=== PATIENT | male | born 1940 | race Caucasian/White ===

== ENCOUNTER → 2020-07-17 | Outpatient (CLI) | payer MEDICARE ==
[~2020-07-17] MED LIST: ALLO300 PO; AMLO10 PO; COLE1 PO; CYAN1000 PO; Ecotrin PO; FISH1000 PO; INSLI100I SC; LEVEMIR SC; LISINOPRIL PO; METF500 PO; POTCIT5 PO; REPA1 PO; SIMV10 PO; SIMV20 PO
== END | disposition home or self-care (01) ==
LOC: PLD 11:36 → LAB SHORT 11:36
DX: C44.629 Squamous cell carcinoma of skin of left upper limb, including shoulder (principal)
CPT/HCPCS: 88305

== ENCOUNTER → 2020-08-05 | Outpatient (CLI) | payer MEDICARE | END | disposition home or self-care (01) | LOC: LAB SHORT 11:32 → PLD 11:32 | DX: C44.629 Squamous cell carcinoma of skin of left upper limb, including shoulder (principal) | CPT/HCPCS: 88305 ==

== ENCOUNTER 2022-10-29 09:42 | Day surgery (SDC) | payer MEDICARE ==
[~2022-10-29] VITALS: Ht 188 cm; Wt 119.0 kg
[~2022-10-29 09:42] MED LIST changes: +FURO40 PO; +LISI20 PO; -SIMV10 PO; +Zocor10 MG PO
[2022-10-29] MEDS ORDERED: Aspir 8181 MG PO (10:22)
--- NOTE | 2022-10-29 13:20 | NUR ---
ASSUMED CARE OF PT. PT AWAKE AND CONVERSING APPROPRIATELY; DENIES PAIN POST PROCEDURE. MONITOR ST WITH IVCD 100'S, B/P 95/62, SPO2 94% 2L NC, AFEBRILE. R RADIAL SITE NO SWELLING/HEMATOMA, TR BAND IN PLACE; RUE POSITIVE PLEUTH POST TR BAND PLACEMENT. R AC (VENOUS) NO SWELLING/HEMATOMA, ASUNCION AND TEGADERM DRSG INTACT.
[2022-10-29] MEDS ORDERED: CLOP75 PO (13:57)
[2022-10-29] MEDS ORDERED: Crestor40 MG PO (13:57)
--- NOTE | 2022-10-29 16:15 | NUR ---
PT AMB TO BATHROOM, GAIT STEADY, SITES UNCHANGED WITH ACTIVITY. PT GOT DRESSED WITH ASSISTANCE, SITES UNCHANGED. TR BAND REMOVED, CLOTH DOT AND WRIST IMMOBILIZER PLACED; IV REMOVED-CANNULA INTACT. PT DECLINED SLING.
--- NOTE | 2022-10-29 16:21 | NUR ---
PT AND RECEIVED DISCHARGE INSTRUCTIONS, MED LIST AND AFTER CARE INSTRUCTIONS; VERBALIZED GOOD UNDERSTANIDNG. PT LEFT FACILITY VIA W/C, CONDITION STABLE.
== END 2022-10-29 16:21 | disposition home or self-care (01) ==
LOC: MHTC 09:42
DX: R06.02 Shortness of breath (principal)
CPT/HCPCS: 85347; 93460; 93571; 99152; 99153; C1769; C1887; C1894; J1644; J2250; J3010; J7030; J7050; Q9967

== ENCOUNTER 2023-07-28 09:09 | Inpatient (IN) | payer MEDICARE ==
[~2023-07-28] VITALS: Ht 188 cm; Wt 122.9 kg
[~2023-07-28 09:09] MED LIST changes: +Aspir 8181 MG PO; +CLOP75 PO; +Crestor40 MG PO
[2023-07-28 10:00] LABS: Calcium, Ionized (POC) 1.11 mmol/L (1.10-1.46); Chloride (POC) 107 mmol/L (98-108); Creatinine (POC) 2.9 mg/dL (0.8-1.3); Glucose (ISTAT POC) 124 mg/dL (70-99); Hemoglobin (POC) 18.4 g/dL (13.5-17.5); Potassium (POC) 5.6 mmol/L (3.5-5.5); Sodium (POC) 138 mmol/L (135-148); Total CO2 (POC) 20 mmol/L (21-32)
[2023-07-28 10:03] LABS: BASOPHILS ABSOLUTE AUTO 0.05 K/mm3 (0.00-0.23); BASOPHILS PERCENT AUTO 1 % (0-2); EOSINOPHILS ABSOLUTE AUTO 0.01 K/mm3 (0.00-0.68); EOSINOPHILS PERCENT AUTO 0 % (0-6); Hematocrit 50.1 % (37.0-53.0); Hemoglobin 16.2 g/dL (13.5-17.5); IMMATURE GRAN ABSOLUTE AUTO 0.06 K/mm3 (0.00-0.10); IMMATURE GRAN PERCENT AUTO 1 % (0-1); LYMPHOCYTES ABSOLUTE AUTO 1.84 K/mm3 (0.84-5.20); LYMPHOCYTES PERCENT AUTO 17 % (21-46); MONOCYTES PERCENT AUTO 7 % (4-13); Mean Corpuscular HGB 30.4 pg (26.0-34.0); Mean Corpuscular HGB Conc 32.3 g/dL (31.5-36.5); Mean Corpuscular Volume 94 fL (80-100); Mean Platelet Volume 9.9 fL (9.1-12.4); NEUTROPHILS ABSOLUTE AUTO 8.29 K/mm3 (1.96-9.15); NEUTROPHILS PERCENT AUTO 75 % (41-73); NRBC ABSOLUTE 0.12 K/mm3 (0.00-0.02); NRBC Auto 1.1 /100 WBC (0.0-0.2); Platelet Count 106 K/mm3 (150-400); RDW Coefficient Variation 22.4 % (11.7-14.2); RDW Standard Deviation 71.9 fL (35.1-46.3); Red Blood Cell Count 5.33 M/mm3 (4.30-5.90); White Blood Cell Count 11.05 K/mm3 (4.00-11.30)
[2023-07-28] MEDS ORDERED: INSULANI (10:05)
[2023-07-28 10:45] LABS: Albumin, Blood 2.9 g/dL (3.4-5.0); Albumin/Globulin Ratio 0.8 (0.8-1.8); Bilirubin, Total 1.2 mg/dL (0.1-1.0); Bun/Creatinine Ratio 18.7 (12.0-20.0); Calcium, Blood 9.6 mg/dL (8.5-10.1); Creatinine, Blood 2.73 mg/dL (0.60-1.20); Globulin, Blood 3.7 g/dL (2.2-4.0); Potassium, Blood 5.7 mmol/L (3.5-5.5); Total Protein, Blood 6.6 g/dL (6.4-8.2)
[2023-07-28 12:12] LABS: Anti-Xa UFH, PHA Monitoring <0.10 IU/mL
[2023-07-28 13:33] VITALS: BP 105/61
--- NOTE | 2023-07-28 16:14 | NUR ---
Comfort Care order received. Spoke with Dr Nam and discussed case. Pt not a candidate for any cardiac interventions. Pt resting in bed upon arrival. Pt is A&OX4 and denies pain at this time. Mild dyspnea noted as evidenced by speaking in 2-3 word sentences and wearing O2 via NC. Pt's spouse and son at bedside. Offered therapeutic listening as Pt describes events leading up to hospital stay. Continued therapeutic listening. Engaged in conversation regarding the potential need to consider hospice pending clinical coarse. Educated on hospice philosophy and answered questions. Provided hospice brochures for agencies available for [place]. Pt and family express appreciation. Pt and family agreeable to complete POLST at a later time. Palliative Care will remain available
--- NOTE | 2023-07-28 17:16 | NUR ---
PT TRANSFERED FROM THE ED THIS AFTERNOON. HE IS A/O, PLESANT AND COOPERATIVE. HE IS ON COMFORT CARE AND FAMILY IS AT BEDSIDE. HIS BED IS IN THE LOW POSITION AND CALL LIGHT IS WITHIN REACH.
--- NOTE | 2023-07-29 07:48 | NUR ---
SHIFT SUMMARY PATIENT IS ALERT AND ORIENTED. C/O PAIN-MEDICATED PER EMAR X1. PATIENT REQUESTED PRN FOR SLEEP-MEDICATED PER EMAR. NO ACUTE CHANGES NOTED.
--- NOTE | 2023-07-29 07:54 | NUR ---
SHIFT SUMMARY PATIENT IS A/OX4. PATIENT IS ON COMFORT CARE. NO ACUTE CHANGES, NO C/O PAIN. PATIENT SLEPT T/O NIGHT.
--- NOTE | 2023-07-29 11:37 | NUR ---
Spiritual care visit conducted. Patient is lying in bed and surrounded by family and friends. Patient immediately explains about his poor prognosis and so we dive into the topics of and dying, about what's most important to him and about his belief's about God and pentecostalism. There is much laughter and tears in our conversation. Patient declines prayer yet is very open to discussion about his [employer] background, his nonpracticing status and his personal connection with God. I facilitate end-of-life discussions and life review, and closure. I also provide levity, a calming presence and reflective questions. Patient and family/friends responded well to the visit and showed signs of being comforted and empowered. I will continue to remian available to patient and family.
--- NOTE | 2023-07-29 16:29 | NUR ---
ALERT AND OREINTED X4, MAKES NEEDS KNOWN, NON AMBULATORY, REPORITIONS SELF IN BED AND HELPS WHEN REPOSTIONING, OMFORT CARE, CONTINUED TO DENY CP PAIN OR N/V, PATIENT TO GO HOME WITH HOSPICE TOMORROW, SON AND IN ROOM FOR THE MOST OF THE DAY, CALL LIGHT WITH IN REACH, DNR BAND ON, WILL RELAY TO PM RN PATIENT EDUCATED AND STATED UNDERSTANDING OF FIRE SAFETY AND IGNITION DEVICES,
--- NOTE | 2023-07-30 04:40 | NUR ---
SHIFT SUMMARY PATIENT IS PLEASANT, ABLE TO MAKE HIS NEEDS KNOWN. PATIENT SLEPT WELL T/O NIGHT, USING THE URINAL AT BEDSIDE. NO ACUTE CHANGES NOTED. BED IS LOCKED IN THE LOWEST POSITION WITH CALL LIGHT IN REACH.
[2023-07-30] MEDS ORDERED: BUME1 PO (12:13)
[2023-07-30] MEDS ORDERED: Amiodarone HCl200 MG PO (12:13)
--- NOTE | 2023-07-30 12:49 | NUR ---
Called to room by primary RN to assist will completing a new POLST. Pt, Mauro sitting up in bed. A&O x4. and son at bedside. Reviewed POLST code options and what each option entailed. Pt and family actively engauged in discussion surrounding code status. Mauro has elected for DNR/Comfort. New POLST completed to reflect DNR/Comfort and has been signed by physician. Planned d/c to hospice this afternoon. Copies made for care team, sent to medical records and original to patient.
--- NOTE | 2023-07-30 14:35 | NUR ---
SHIFT/DISCHARGE SUMMARY Pt remains A&Ox3 this shift. Denies pain, resp even nonlabored on 2L NC. Voiding per urinal. All discharge instructions reviewed with return verbal understanding. Pt dc home via ambulance stretcher for home hospice.
== END 2023-07-30 14:35 | disposition hospice, home (50) | DRG 281 ==
LOC: ER 09:09 → MEDS 12:22 → ENPENDDIS 07-30 11:23 → MEDS 07-30 14:35
PROVIDERS: Emergency Medicine; ADMIT Family Medicine
DX: I21.4 Non-ST elevation (NSTEMI) myocardial infarction (principal); E66.2 Morbid (severe) obesity with alveolar hypoventilation; N17.9 Acute kidney failure, unspecified; I25.10 Atherosclerotic heart disease of native coronary artery without angina pectoris; I48.91 Unspecified atrial fibrillation; N18.30 Chronic kidney disease, stage 3 unspecified; Z51.5 Encounter for palliative care; Z66 Do not resuscitate; E11.22 Type 2 diabetes mellitus with diabetic chronic kidney disease; I12.9 Hypertensive chronic kidney disease with stage 1 through stage 4 chronic kidney disease, or unspecified chronic kidney disease; J43.9 Emphysema, unspecified; I27.20 Pulmonary hypertension, unspecified; I45.10 Unspecified right bundle-branch block; E87.5 Hyperkalemia; D69.6 Thrombocytopenia, unspecified; E03.9 Hypothyroidism, unspecified; M10.9 Gout, unspecified; Z88.5 Allergy status to narcotic agent; Z79.02 Long term (current) use of antithrombotics/antiplatelets; Z79.84 Long term (current) use of oral hypoglycemic drugs; Z79.82 Long term (current) use of aspirin; Z96.651 Presence of right artificial knee joint; Z68.34 Body mass index [BMI] 34.0-34.9, adult
CPT/HCPCS: 71045; 80047; 80053; 83880; 84484; 85014; 85025; 85520; 85610; 85730; 93005; 93010; 96365; 96375; 99285-25; A9270; J0282; J1815; J1940; J3475; J7030; J7060

== ENCOUNTER → 2024-09-26 | Outpatient (CLI) | payer MEDICARE ==
[~2024-09-26] MED LIST changes: +Amiodarone HCl200 MG PO; +BUME1 PO; +INSULANI
[2024-09-26 19:13] LABS: BASOPHILS ABSOLUTE AUTO 0.05 K/mm3 (0.00-0.23); BASOPHILS PERCENT AUTO 1 % (0-2); EOSINOPHILS ABSOLUTE AUTO 0.42 K/mm3 (0.00-0.68); EOSINOPHILS PERCENT AUTO 6 % (0-6); Hemoglobin 14.6 g/dL (13.5-17.5); IMMATURE GRAN ABSOLUTE AUTO 0.03 K/mm3 (0.00-0.10); IMMATURE GRAN PERCENT AUTO 0 % (0-1); LYMPHOCYTES ABSOLUTE AUTO 2.15 K/mm3 (0.84-5.20); LYMPHOCYTES PERCENT AUTO 30 % (21-46); MONOCYTES ABSOLUTE AUTO 0.74 K/mm3 (0.16-1.47); MONOCYTES PERCENT AUTO 10 % (4-13); Mean Corpuscular HGB 30.8 pg (26.0-34.0); Mean Corpuscular HGB Conc 32.4 g/dL (31.5-36.5); Mean Corpuscular Volume 95 fL (80-100); Mean Platelet Volume 10.3 fL (9.1-12.4); NEUTROPHILS ABSOLUTE AUTO 3.78 K/mm3 (1.96-9.15); NEUTROPHILS PERCENT AUTO 53 % (41-73); Platelet Count 213 K/mm3 (150-400); RDW Coefficient Variation 14.6 % (11.7-14.2); RDW Standard Deviation 51.6 fL (35.1-46.3); Red Blood Cell Count 4.74 M/mm3 (4.30-5.90); White Blood Cell Count 7.17 K/mm3 (4.00-11.30)
[2024-09-26 20:10] LABS: Albumin, Blood 3.1 g/dL (3.4-5.0); Albumin/Globulin Ratio 0.9 (0.8-1.8); Bilirubin, Total 0.5 mg/dL (0.1-1.0); Bun/Creatinine Ratio 20.4 (12.0-20.0); Calcium, Blood 9.2 mg/dL (8.5-10.1); Creatinine, Blood 1.42 mg/dL (0.60-1.20); Globulin, Blood 3.5 g/dL (2.2-4.0); Potassium, Blood 4.3 mmol/L (3.5-5.5); Total Protein, Blood 6.6 g/dL (6.4-8.2)
== END | disposition home or self-care (01) ==
LOC: LAB 10:11 → LAB SHORT 10:11
DX: E11.21 Type 2 diabetes mellitus with diabetic nephropathy (principal); N18.31 Chronic kidney disease, stage 3a
CPT/HCPCS: 80053; 85025

== ENCOUNTER → 2025-05-30 | Outpatient (CLI) | payer MEDICARE ==
[2025-05-30 14:47] LABS: Alanine Aminotransfer (ALT/SGP 18.0 U/L (12-78); Albumin, Blood 3.0 g/dL (3.4-5.0); Albumin/Globulin Ratio 0.8 (0.8-1.8); Anion Gap 7.0 mmol/L (3-11); Aspartate Aminotrans (AST/SGOT 28.0 U/L (12-37); Bilirubin, Total 0.6 mg/dL (0.1-1.0); Blood Urea Nitrogen 33.0 mg/dL (8-24); CO2, Blood 31.0 mmol/L (21-32); Calcium, Blood 9.1 mg/dL (8.5-10.1); Chloride, Blood 107.0 mmol/L (98-108); Creatinine, Blood 1.5 mg/dL (0.60-1.20); Globulin, Blood 3.7 g/dL (2.2-4.0); Glucose, Blood 91.0 mg/dL (70-99); Potassium, Blood 4.5 mmol/L (3.5-5.5); Sodium, Blood 140.0 mmol/L (136-145); Thyroid Stimulating Hormone 21.7 uIU/mL (0.360-4.800); Total Protein, Blood 6.7 g/dL (6.4-8.2)
== END | disposition home or self-care (01) ==
LOC: LAB SHORT 09:49 → LAB 09:49
PROVIDERS: Internal Medicine Endocrinology, Diabetes & Metabolism
DX: E11.21 Type 2 diabetes mellitus with diabetic nephropathy (principal); E03.8 Other specified hypothyroidism
CPT/HCPCS: 80053; 83036; 84443

== ENCOUNTER → 2025-07-13 | Outpatient (CLI) | payer MEDICARE ==
[2025-07-13 15:46] LABS: Anion Gap 5.0 mmol/L (3-11); Blood Urea Nitrogen 31.0 mg/dL (8-24); CO2, Blood 31.0 mmol/L (21-32); Calcium, Blood 9.2 mg/dL (8.5-10.1); Chloride, Blood 108.0 mmol/L (98-108); Creatinine, Blood 1.38 mg/dL (0.60-1.20); Glucose, Blood 71.0 mg/dL (70-99); Potassium, Blood 3.8 mmol/L (3.5-5.5); Sodium, Blood 140.0 mmol/L (136-145)
[2025-07-17 13:46] LABS: SERUM, C-PEPTIDE 0.5 ng/mL (0.5-3.3)
[2025-07-18 04:49] LABS: GLUTAMIC ACID DECARBOXYLASE AB <5.0 IU/mL (0.0-5.0)
== END | disposition home or self-care (01) ==
LOC: LAB SHORT 14:09 → LAB 14:09
PROVIDERS: Internal Medicine Endocrinology, Diabetes & Metabolism
DX: E11.21 Type 2 diabetes mellitus with diabetic nephropathy (principal)
CPT/HCPCS: 80048; 84681; 86341